=== PATIENT | female | born 1950 | race Caucasian/White ===

== ENCOUNTER 2017-05-21 11:46 | Emergency (ER) | payer MEDICAID, MEDICARE ==
[2017-05-21 11:54] VITALS: TEMP 97.9
[2017-05-21 12:55] LABS: RBC URINE 439 /hpf (0-3); URINE BILIRUBIN NEGATIVE (NEGATIVE); URINE BLOOD 2+ (NEGATIVE); URINE COLOR Red (YELLOW); URINE GLUCOSE (UA) 3+ mg/dL (Normal); URINE KETONE NEGATIVE (NEGATIVE); URINE LEUKOCYTE ESTERASE 1+ Leu/uL (Negative); URINE PROTEIN 2+ mg/dL (NEGATIVE); URINE UROBILINOGEN NORMAL mg/dL (0.2-1.0); WBC URINE 20 /hpf (0-5)
[2017-05-21 13:02] LABS: BASO # 0.1 K/uL (0.0-0.2); BASO % 0.6 % (0.0-2.0); EOS # 0.3 K/uL (0.0-0.7); EOS % 3.8 % (0.0-4.0); HEMATOCRIT 36.1 % (34.0-47.0); LYMPH # 2.2 K/uL (1.0-4.3); LYMPH % 24.5 % (20.0-40.0); MEAN CELL VOLUME 91.6 fL (81.0-99.0); MEAN CORPUSCULAR HEMOGLOBIN 30.4 pg (27.0-31.0); MEAN CORPUSCULAR HGB CONC 33.2 g/dL (33.0-37.0); MEAN PLATELET VOLUME 7.9 fL (7.2-11.7); MONO # 0.6 K/uL (0.0-0.8); MONO % 6.3 % (0.0-10.0); RED CELL DISTRIBUTION WIDTH 13.3 % (11.5-14.5); WHITE BLOOD COUNT 9.1 K/uL (4.8-10.8)
--- NOTE | 2017-05-21 13:02 | C.PDOC ---
History Of Present Illness 66 yr old female with new onset of hematuria vs. vaginal bleeding this morning but presents with only with urination dysuria. Patient currently asymptomatic. Denies fever, chills, nausea, vomiting, weakness or numbness. NEW ONSET HEMATURIA VS VB THIS MORNING. PRESENT ONLY W URINATION. +DYSURIA. NO FEVER, NV. CURRENTLY ASYMPT EXAM NAD ABD NEG MATT RN OUTLAW ADOLESCENT PSYCHIATRIST. BIMAN +CLEAR LIQUID BLOOD TINGED, NO GLOTS REMAINDER NEG Time Seen by Provider: 05/21/17 12:11 Chief Complaint (Nursing): Female Genitourinary History Per: Patient History/Exam Limitations: no limitations Onset/Duration Of Symptoms: Sudden Onset Current Symptoms Are (Timing): Still Present Past Medical History Reviewed: Historical Data, Nursing Documentation, Vital Signs Vital Signs: Last Vital Signs Temp 97.9 F 05/21/17 11:53 Pulse 69 05/21/17 14:55 Resp 18 05/21/17 14:55 BP 147/61 05/21/17 14:55 Pulse Ox 96 05/21/17 15:02 - Medical History PMH: HTN, Hyperlipidemia Family History: States: No Known Family Hx - Social History Hx Alcohol Use: No Hx Substance Use: No - Immunization History Hx Tetanus Toxoid Vaccination: No Hx Influenza Vaccination: Yes Hx Pneumococcal Vaccination: Yes Review Of Systems Except As Marked, All Systems Reviewed And Found Negative. Constitutional: Negative for: Fever, Chills Gastrointestinal: Negative for: Nausea, Vomiting Genitourinary: Positive for: Dysuria, Hematuria Neurological: Negative for: Weakness, Numbness Physical Exam - Physical Exam Appears: Non-toxic, No Acute Distress Skin: Warm, Dry, No Rash Head: Atraumatic, Normacephalic Oral Mucosa: Moist Cardiovascular: Rhythm Regular, No Murmur Respiratory: Normal Breath Sounds, No Rales, No Rhonchi, No Stridor, No Wheezing Gastrointestinal/Abdominal: Normal Exam, Soft, No Tenderness, No Guarding, No Rebound Pelvic: Other (Biman, +clear liquid blood tinged. No clots.) Extremity: Normal ROM, No Swelling Neurological/Psych: Oriented x3, Normal Speech, Normal Motor, Normal Sensation ED Course And Treatment - Laboratory Results Result Diagrams: 05/21/17 12:58 05/21/17 12:58 O2 Sat by Pulse Oximetry: 96 (RA) Pulse Ox Interpretation: Normal - CT Scan/US US - Transvaginal Other Rad Studies (CT/US): Read By Radiologist, Radiology Report Reviewed CT/US Interpretation: HISTORY: vag bleeding. COMPARISON: None available. TECHNIQUE: Transabdominal and endovaginal ultrasound examination of the pelvis was obtained. FINDINGS: UTERUS: Measures 5 x 2.3 x 3.4 cm. Normal in size and appearance. No fibroid or other mass lesion seen. ENDOMETRIUM: Measures 3.3 mm in diameter. Unremarkable. CERVIX: No cervical abnormality identified. RIGHT OVARY: Measures 2.3 x 0.8 x 0.7 cm. No solid mass. Normal flow. There is sub centimeters cyst seen at the right ovary measures 0.8 x 0.64 x 0.65 centimeter. LEFT OVARY: Measures 1.8 x 0.84 x 1.4 cm. No solid mass. Normal flow. FREE FLUID: No significant free fluid noted. OTHER FINDINGS: None. IMPRESSION: Small low position uterus without evidence of fibroid or discrete mass. Endometrial stripe thickness 3.3 millimeter. Sub centimeters cyst at the right ovary. Otherwise unremarkable ultrasound examination of the ovaries. Medical Decision Making Medical Decision Making: PLAN: * US - Transvaginal * CBC * CMP * Urinalysis * Rocephin IV Disposition Counseled Patient/Family Regarding: Studies Performed, Diagnosis, Need For Followup, Rx Given - Disposition Referrals: [facility] [Outside] [facility] [Outside] Disposition: HOME/ ROUTINE Disposition Time: 15:14 Condition: IMPROVED Prescriptions: Nitrofurantoin Macrocrystals [Macrobid] 1 cap PO BID #14 cap Phenazopyridine HCl [Pyridium] 200 mg PO BID #6 tablet Instructions: Urinary Tract Infection in Women (ED) Forms: [employer] (Canadian) - Clinical Impression Clinical Impression: UTI (urinary tract infection) - Scribe Statement The provider has reviewed the documentation as recorded by the Augusto Kong Provider Attestation: All medical record entries made by the Augusto were at my direction and personally dictated by me. I have reviewed the chart and agree that the record accurately reflects my personal performance of the history, physical exam, medical decision making, and the department course for this patient. I have also personally directed, reviewed, and agree with the discharge instructions and disposition.
[2017-05-21] MEDS ORDERED: cefTRIAXone IV 1 gm in Dextros 50 ML IV STA (13:03)
[2017-05-21 13:14] LABS: BLOOD UREA NITROGEN 15 mg/dL (7-17); CALCIUM 8.8 mg/dl (8.6-10.4); CARBON DIOXIDE 25 mmol/L (22-30); CHLORIDE 97 mmol/L (98-107); GFR AFRICAN-AMERICAN > 60; GLUCOSE,RANDOM 276 mg/dL (65-105); SODIUM 131 mmol/L (132-148)
[2017-05-21] MEDS ORDERED: cefTRIAXone IV 1 gm in Dextros 50 ML IVPB ONE (13:21)
[2017-05-21 13:55] VITALS: RESP 18
--- NOTE | 2017-05-21 15:01 | US ---
HISTORY: vag bleeding COMPARISON: None available. TECHNIQUE: Transabdominal and endovaginal ultrasound examination of the pelvis was obtained. FINDINGS: UTERUS: Measures 5 x 2.3 x 3.4 cm. Normal in size and appearance. No fibroid or other mass lesion seen. ENDOMETRIUM: Measures 3.3 mm in diameter. Unremarkable. CERVIX: No cervical abnormality identified. RIGHT OVARY: Measures 2.3 x 0.8 x 0.7 cm. No solid mass. Normal flow. There is sub centimeters cyst seen at the right ovary measures 0.8 x 0.64 x 0.65 centimeter. LEFT OVARY: Measures 1.8 x 0.84 x 1.4 cm. No solid mass. Normal flow. FREE FLUID: No significant free fluid noted. OTHER FINDINGS: None. IMPRESSION: Small low position uterus without evidence of fibroid or discrete mass. Endometrial stripe thickness 3.3 millimeter. Sub centimeters cyst at the right ovary. Otherwise unremarkable ultrasound examination of the ovaries.
[2017-05-21 15:25] VITALS: BP 133/65; PULSE 73; O2SAT 99
== END 2017-05-21 15:32 | disposition home or self-care (01) ==
LOC: C.ER 11:46
DX: N39.0 Urinary tract infection, site not specified (principal)
CPT/HCPCS: 76830; 76856; 80048; 81001; 85025; 87086; 96365; 99285; J0696

== ENCOUNTER 2018-03-16 20:13 | Emergency (ER) | payer MEDICARE, MEDICAID ==
[2018-03-16 20:31] VITALS: TEMP 98.2; O2SAT 100
[2018-03-16 20:57] LABS: SQUAMOUS EPITHIAL 3 /hpf (0-5); URINE BACTERIA FEW (<OCC); URINE BILIRUBIN NEGATIVE (NEGATIVE); URINE BLOOD 3+ (NEGATIVE); URINE CLARITY Hazy (Clear); URINE COLOR Yellow (YELLOW); URINE GLUCOSE (UA) NORMAL (Normal); URINE LEUKOCYTE ESTERASE 1+ Leu/uL (Negative); URINE PROTEIN 2+ mg/dL (NEGATIVE); URINE UROBILINOGEN NORMAL mg/dL (0.2-1.0)
--- NOTE | 2018-03-16 21:06 | C.PDOC ---
History Of Present Illness <Laisha Shields P - Last Filed: 03/16/18 22:00> <Cullen Gilbert - Last Filed: 03/17/18 00:15> PGY-[address] Gilbert. 67 year old female with PMHx of DM, HTN, and hypercholesterolemia presents to ED with complaint of dysuria, urinary frequency and hematuria. States urine is grossly bloody with clots. Also reports bilateral lower back pain that began yesterday and has since resolved. Admits to mild diaphoresis. Patient denies fever, chills, vaginal bleeding/spotting, vaginal discharge, nausea, vomiting, abdominal pain, chest pain, shortness of breath and generalized weakness. States she had a similar episode one year ago and was seen at [facility] ED and treated with antibiotics. (Laisha Shields) <Laisha Shields P - Last Filed: 03/16/18 22:00> <Cullen Gilbert - Last Filed: 03/17/18 00:15> Time Seen by Provider: 03/16/18 20:40 Chief Complaint (Nursing): Female Genitourinary Past Medical History - Medical History PMH: HTN, Hyperlipidemia Family History: States: Unknown Family Hx - Social History Hx Alcohol Use: No Hx Substance Use: No - Immunization History Hx Tetanus Toxoid Vaccination: No Hx Influenza Vaccination: No Hx Pneumococcal Vaccination: Yes <Laisha Shields P - Last Filed: 03/16/18 22:00> Vital Signs: Last Vital Signs Temp 98.2 F 03/16/18 21:46 Pulse 68 03/16/18 21:46 Resp 15 03/16/18 21:46 BP 145/87 03/16/18 21:46 Pulse Ox 100 03/16/18 22:01 Review Of Systems Constitutional: Positive for: Sweats. Negative for: Fever, Chills, Weakness Cardiovascular: Negative for: Chest Pain, Palpitations Respiratory: Negative for: Shortness of Breath Gastrointestinal: Negative for: Nausea, Vomiting, Abdominal Pain, Diarrhea Genitourinary: Positive for: Dysuria, Frequency, Hematuria Neurological: Negative for: Weakness, Dizziness <Laisha Shields P - Last Filed: 03/16/18 22:00> Physical Exam - Physical Exam Appears: Non-toxic, No Acute Distress Skin: Normal Color, Warm, Dry Head: Atraumatic, Normacephalic Eye(s): bilateral: Normal Inspection, EOMI Cardiovascular: Rhythm Regular, No Friction Rub, No Murmur Respiratory: Normal Breath Sounds, No Rales, No Rhonchi, No Wheezing Gastrointestinal/Abdominal: Bowel Sounds, Soft, No Tenderness, No Distention, No Guarding, No Rebound Back: No CVA Tenderness Extremity: Normal ROM Neurological/Psych: Oriented x3, Normal Speech <ShieldsCrysLaisha P - Last Filed: 03/16/18 22:00> ED Course And Treatment O2 Sat by Pulse Oximetry: 100 <CorneliusLaisha Rodríguez - Last Filed: 03/16/18 22:00> Medical Decision Making <Laisha Shields - Last Filed: 03/16/18 22:00> <Cullen Gilbert - Last Filed: 03/17/18 00:15> Medical Decision Making: Plan: UA: 2+protein, 3+blood, 1+ LE, 7 WBC, 2869 RBC, Few bacteria Patient without systemic symptoms. Discharge to home with antibiotics. Follow up with PMD. (Laisha Shields) Seen and examined with resident. 67 y/o F p/w dysuria and hematuria. On exam, appears well, no CVA tenderness. UA positive for blood and leuks/wbcs. (Cullen Gilbert) Disposition <ShieldsCrysLaisha P - Last Filed: 03/16/18 22:00> - Disposition Disposition Time: 21:20 <Cullen Gilbert - Last Filed: 03/17/18 00:15> - Disposition Referrals: Moises Hutton MD [Primary Care Provider] - Disposition: HOME/ ROUTINE Condition: STABLE Prescriptions: Nitrofurantoin Macrocrystals [Macrobid] 100 mg PO BID #20 cap Phenazopyridine [Pyridium] 1 tab PO Q8 #6 tab Instructions: Urinary Tract Infections in Adults Forms: [employer] ([place] Zealander), Gen Discharge Inst Israeli Print Language: INDONESIAN - Clinical Impression Clinical Impression: UTI (urinary tract infection)
[2018-03-16 21:47] VITALS: BP 145/87; PULSE 68; RESP 15
== END 2018-03-16 21:47 | disposition home or self-care (01) ==
LOC: C.ER 20:13 → SUPCPDRO 20:13 → C.ER 21:47
DX: N39.0 Urinary tract infection, site not specified (principal); I10 Essential (primary) hypertension; E11.9 Type 2 diabetes mellitus without complications; E78.00 Pure hypercholesterolemia, unspecified

== ENCOUNTER 2018-08-24 19:54 | Emergency (ER) | payer MEDICARE, MEDICAID ==
[2018-08-24 20:04] VITALS: BP 146/78; PULSE 83; RESP 20; TEMP 97.8; O2SAT 97
--- NOTE | 2018-08-24 21:58 | C.PDOC ---
History Of Present Illness 67 year old female presents to the ED for evaluation after she fell and slipped in the bathroom yesterday. Patient states she hit her head against the toilet bowl. She had mild pain to the posterior head, and with increased pain, dizziness and neck pain today. Patient denies LOC, vomiting, extremity numbness/weakness. Time Seen by Provider: 08/24/18 20:15 Chief Complaint (Nursing): Headache History Per: Patient History/Exam Limitations: no limitations Onset/Duration Of Symptoms: Days (2) Current Symptoms Are (Timing): Still Present Quality: "Pain" Past Medical History Reviewed: Historical Data, Nursing Documentation, Vital Signs Vital Signs: Last Vital Signs Temp 97.8 F 08/24/18 19:59 Pulse 83 08/24/18 19:59 Resp 20 08/24/18 19:59 BP 146/78 08/24/18 19:59 Pulse Ox 97 08/24/18 19:59 - Medical History PMH: HTN, Hyperlipidemia, Hypothyroidism Surgical History: No Surg Hx Family History: States: Unknown Family Hx - Social History Hx Alcohol Use: No Hx Substance Use: No - Immunization History Hx Tetanus Toxoid Vaccination: Yes Hx Influenza Vaccination: Yes Hx Pneumococcal Vaccination: Yes Review Of Systems Gastrointestinal: Negative for: Vomiting Musculoskeletal: Positive for: Neck Pain Neurological: Positive for: Dizziness, Other (mild pain to posterior head, no LOC ). Negative for: Weakness, Numbness Physical Exam - Physical Exam Appears: Non-toxic, No Acute Distress Skin: Normal Color, Warm, Dry Head: Normacephalic, Other (small hematoma to the mid-posterior scalp) Eye(s): bilateral: Normal Inspection, PERRL, EOMI Oral Mucosa: Moist Neck: Normal ROM, No Midline Cervical Tenderness, No Paracervical Tenderness, Supple Chest: Symmetrical, No Deformity, No Tenderness Cardiovascular: Rhythm Regular, No Murmur Respiratory: Normal Breath Sounds, No Rales, No Rhonchi, No Wheezing Extremity: Normal ROM, Capillary Refill (less than 2 seconds ) Extremity: Bilateral: Atraumatic Neurological/Psych: Oriented x3, Normal Speech, Normal Cognition, Normal Motor, Normal Sensation ED Course And Treatment O2 Sat by Pulse Oximetry: 97 (on RA) Pulse Ox Interpretation: Normal - CT Scan/US CT Head Other Rad Studies (CT/US): Read By Radiologist, Radiology Report Reviewed CT/US Interpretation: EXAM: CT Head without Intravenous Contrast. CLINICAL HISTORY: Trauma/headache. TECHNIQUE: Axial computed tomography images of the head/brain without intravenous contrast. 0.00 mGy-cm. COMPARISON: None pr ovided. FINDINGS: BRAIN. Chronic periventricular and subcortical microvascular disease is seen. VENTRICLES: There is generalized parenchymal atrophy noted as demonstrated by symmetrical dilatation of ventricles and sulci. ORBITS: The orbits are unremarkable. SINUSES AND MASTOIDS: The paranasal sinuses and mastoid air cells are clear. BONES: No fracture. SOFT TISSUES: Unremarkable. MISCELLANEOUS: No acute intracranial pathology. IMPRESSION: 1. There is generalized parenchymal atrophy noted as demonstrated by symmetrical dilatation of ventricles and sulci. 2. Chronic periventricular and subcortical microvascular disease is seen. 3. No acute intracranial pathology. Progress Note: CT Head ordered and reviewed. Tylenol PO given. 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 - Scribe Statement The provider has reviewed the documentation as recorded by the Scribe (Katie Cosme) All medical record entries made by the Scribe were at my direction and personally dictated by me. I have reviewed the chart and agree that the record accurately reflects my personal performance of the history, physical exam, medical decision making, and the department course for this patient. I have also personally directed, reviewed, and agree with the discharge instructions and disposition.
--- NOTE | 2018-08-25 07:18 | CT ---
Date of service: 08/24/2018 PROCEDURE: CT HEAD WITHOUT CONTRAST. HISTORY: headache, fall COMPARISON: None available. TECHNIQUE: Axial computed tomography images were obtained through the head/brain without intravenous contrast. Radiation dose: Total exam DLP = 940.96 mGy-cm. This CT exam was performed using one or more of the following dose reduction techniques: Automated exposure control, adjustment of the mA and/or kV according to patient size, and/or use of iterative reconstruction technique. FINDINGS: HEMORRHAGE: No intracranial hemorrhage. BRAIN: No mass effect or edema. Scattered focal lucencies in the subcortical and periventricular white matter suggestive for chronic microvascular ischemic change. Mild diffuse generalized parenchymal atrophy. VENTRICLES: Unremarkable. No hydrocephalus. CALVARIUM: Unremarkable. PARANASAL SINUSES: Unremarkable as visualized. No significant inflammatory changes. MASTOID AIR CELLS: Unremarkable as visualized. No inflammatory changes. OTHER FINDINGS: None. IMPRESSION: No acute intracranial abnormality. Mild chronic microvascular ischemic change. If symptoms persists, consider correlation with MRI. A preliminary report was generated at 9:28 p.m. on 08/24/[address] Robbin Willingham from [employer]
== END 2018-08-24 22:23 | disposition home or self-care (01) ==
LOC: C.ER 19:54
DX: S09.90XA Unspecified injury of head, initial encounter (principal); W01.198A Fall on same level from slipping, tripping and stumbling with subsequent striking against other object, initial encounter; Y92.002 Bathroom of unspecified non-institutional (private) residence as the place of occurrence of the external cause

== ENCOUNTER 2018-09-02 07:38 | Outpatient (CLI) | payer MEDICARE, MEDICAID | END 2018-09-02 07:39 | disposition home or self-care (01) | LOC: C.MAMMO 07:38 | DX: Z12.39 Encounter for other screening for malignant neoplasm of breast (principal) ==